=== PATIENT | female | born 1960 | race Caucasian/White ===

== ENCOUNTER 2016-08-02 21:46 | Emergency (ER) | payer MEDICAID, OTHER ==
[~2016-08-02] VITALS: Ht 160 cm; Wt 88.0 kg
[~2016-08-02 21:46] MED LIST: MEDS FOR HTN
[2016-08-02 21:50] VITALS: Ht 160 cm; Wt 88.0 kg
[2016-08-02] MEDS ORDERED: ASPIRIN 81 MG TAB PO STA (23:31)
--- NOTE | 2016-08-02 23:35 | ERD ---
ER Documentation Chief Complaint Date/Time DATE: 08/02/16 TIME: 23:33 Chief Complaint CP for 3 days with GAYLE, weakness and dizziness HPI Patient is a 55-year-old female who presents with gradual onset, intermittent, moderate, dull, pressure-like chest pain for 3 days. She states that she feels an electrical pain that radiates to her right shoulder. She feels short of breath. She denies cough, fever, vomiting. She reports nausea. She states that the pain is worsened by eating. She states that it was constant all day for the last 2 days, and has been intermittent today lasting around an hour at a time. ROS All systems reviewed and are negative except as per history of present illness. Medications Home Meds Active Scripts Famotidine* (Pepcid*) 20 Mg Tablet, 20 MG PO DAILY, #30 TAB Prov:NIC NUR MD 08/03/16 Reported Medications Omega3/Dha/Epa/Fish Oil/Vit D3 ([place]-3 + Vitamin D3 Softgel) 1 Each Capsule, 1 EACH PO, CAP 08/03/16 Triamterene/Hctz* (Maxzide (37.5-25)*) 1 Each Tablet, 1 EACH PO DAILY, #30 TAB 08/03/16 Benazepril Hcl* (Benazepril Hcl*) 10 Mg Tablet, 10 MG PO DAILY for HTN, #30 TAB 08/03/16 Ibuprofen* (Ibuprofen*) 200 Mg Capsule, 200 MG PO Q6, CAP 08/03/16 Discontinued Reported Medications [Meds For Htn] No Conflict Check 06/05/11 Allergies Allergies: Coded Allergies: No Known Allergy (Unverified , 08/03/16) PMhx/Soc Past medical history: Hypertension Past surgical history: Cholecystectomy, hysterectomy Social history: Denies tobacco, alcohol or illicit drugs. History of Surgery: Yes (HYSTERECTOMY,cholecystectomy) Anesthesia Reaction: No Hx Neurological Disorder: No Hx Respiratory Disorders: No Hx Cardiac Disorders: Yes (HTN,high cholesterol) Hx Psychiatric Problems: No Hx Miscellaneous Medical Probl: No Hx Alcohol Use: No Hx Substance Use: No Hx Tobacco Use: No Smoking Status: Never smoker FmHx Family History: No coronary disease, No diabetes Physical Exam Vitals Vital Signs Date Time Temp Pulse Resp B/P Pulse Ox O2 Delivery O2 Flow Rate FiO2 08/03/16 02:00 62 12 133/89 99 Room Air 6/17/17 01:53 97.6 66 13 141/88 99 Room Air 08/03/16 00:10 97.7 76 19 159/80 99 Room Air 08/02/16 21:50 98.7 79 20 177/109 99 Physical Exam Const: Alert, no acute distress Head: Atraumatic Eyes: Normal Conjunctiva, no pallor, no icterus ENT: Normal External Ears, Nose and Mouth. Mucous membranes moist Neck: Full range of motion..~ No meningismus. No JVD. Resp: Clear to auscultation bilaterally, no wheezes, no rales Cardio: Regular rate and rhythm, no murmurs Abd: Soft, non tender, non distended. Normal bowel sounds Skin: No petechiae or rashes Back: No midline or flank tenderness Ext: No cyanosis, or edema Neur: Awake and alert, cranial nerves II through XII intact bilaterally, strength and sensation full in 4 extremities Psych: Normal Mood and Affect Result Diagram: 08/03/16 0010 08/03/16 0010 Results 24 hrs Laboratory Tests Test 08/03/16 00:10 White Blood Count 6.410^3/ul Red Blood Count 4.7610^6/ul Hemoglobin 13.7g/dl Hematocrit 42.1% Mean Corpuscular Volume 88.4fl Mean Corpuscular Hemoglobin 28.8pg Mean Corpuscular Hemoglobin Concent 32.5g/dl Red Cell Distribution Width 14.2% Platelet Count 49626^3/UL Mean Platelet Volume 10.0fl Neutrophils % 50.8% Lymphocytes % 36.0% Monocytes % 8.5% Eosinophils % 3.7% Basophils % 0.5% Nucleated Red Blood Cells % 0.0/100WBC Neutrophils # 3.310^3/ul Lymphocytes # 2.310^3/ul Monocytes # 0.610^3/ul Eosinophils # 0.210^3/ul Basophils # 0.010^3/ul Nucleated Red Blood Cells # 0.010^3/ul Prothrombin Time 12.8Sec Prothrombin Time Ratio 1.0 INR International Normalized Ratio 0.96 Activated Partial Thromboplast Time 32.0Sec Sodium Level 141mmol/L Potassium Level 3.6mmol/L Chloride Level 103mmol/L Carbon Dioxide Level 25mmol/L Anion Gap 17 Blood Urea Nitrogen 23mg/dl Creatinine 0.81mg/dl Glucose Level 90mg/dl Calcium Level 9.6mg/dl Total Bilirubin 0.1mg/dl Direct Bilirubin 0.00mg/dl Indirect Bilirubin 0.1mg/dl Aspartate Amino Transf (AST/SGOT) 21IU/L Alanine Aminotransferase (ALT/SGPT) 37IU/L Alkaline Phosphatase 123IU/L Troponin I < 0.012ng/ml B-Type Natriuretic Peptide 20PG/ML Total Protein 8.1g/dl Albumin 4.8g/dl Globulin 3.30g/dl Albumin/Globulin Ratio 1.45 Current Medications Medications (Trade) Dose Ordered Sig/Caprice Route PRN Reason Start Time Stop Time Status Last Admin Dose Admin Aspirin (Aspirin) 162 mg ONCE STAT PO 08/02/16 23:31 08/02/16 23:33 DC 08/03/16 00:22 Procedures/MDM EKG read by me: Time 0003, rate 65 Rhythm: Normal sinus [place]: Normal Intervals: Normal ST-T waves: Shallow T-wave inversion in aVL only Ectopy: No Q-waves: No Impression: No evidence of ischemia or arrhythmia MDM: Patient is a 55-year-old female who presents with 3 days of chest pain. She states that it is intermittent, but has been constant for 2 full days. It is atypical, and is related to eating, which suggests a gastrointestinal etiology. The patient has a non-concerning EKG, and normal chest x-ray and troponin. Given the duration of symptoms and negative troponin, I believe that the patient can be safely discharged home. Furthermore her clinical history is not suggestive of ACS. There are no features of the pain that are concerning for pulmonary embolism or aortic dissection. I will give the patient a prescription for Pepcid given my high suspicion for GI etiology, and have advised the patient on strict return precautions and need for close PMD follow- up. Departure Diagnosis: Primary Impression: Chest pain Chest pain type: other chest pain Qualified Code: R07.89 - Other chest pain Condition: Stable NIC NUR MD Aug 02, 2016 23:35
[2016-08-03] MEDS ORDERED: IBUP200C PO (00:55)
[2016-08-03] MEDS ORDERED: MAXZ25 PO (00:55)
[2016-08-03] MEDS ORDERED: OMEG-119 PO (00:55)
[2016-08-03] MEDS ORDERED: BENA10TA48 PO (00:55)
--- NOTE | 2016-08-03 00:57 | RADRPT ---
PROCEDURE: XR Chest. CLINICAL INDICATION: Chest pain. TECHNIQUE: Single frontal chest x-ray. COMPARISON: None. FINDINGS: The cardiomediastinal silhouette is unremarkable. There is no congestive heart failure.. No focal i nfiltrate is seen. There is no pleural effusion. There is no pneumothorax. The osseous structures are unremarkable. IMPRESSION: 1. No active disease. RPTAT: HMVK .Lucas May MD, MD Date Time Electronically viewed and signed by .Lucas May MD, MD on 08/03/2016 00:56 .K/
[2016-08-03 01:38] LABS: ADD SCAN DIFF NO
[2016-08-03 01:49] LABS: BASOPHILS % 0.5 % (0.0-2.0); EOSINOPHILS # 0.2 10^3/ul (0.0-0.5); EOSINOPHILS % 3.7 % (0.0-7.0); HEMATOCRIT 42.1 % (37.0-47.0); HEMOGLOBIN 13.7 g/dl (12.0-16.0); LYMPHOCYTES # 2.3 10^3/ul (0.8-2.9); MEAN CORPUSCULAR HEMOGLOBIN 28.8 pg (29.0-33.0); MEAN CORPUSCULAR HGB CONC 32.5 g/dl (32.0-37.0); MEAN CORPUSCULAR VOLUME 88.4 fl (82.0-101.0); MONOCYTE # 0.6 10^3/ul (0.3-0.9); MONOCYTES % 8.5 % (0.0-11.0); NEUTROPHIL # 3.3 10^3/ul (1.6-7.5); NEUTROPHILS % 50.8 % (39.0-77.0); PLATELET COUNT 324 10^3/UL (140-415); RED BLOOD COUNT 4.76 10^6/ul (4.20-5.40); RED CELL DISTRIBUTION WIDTH 14.2 % (11.5-14.5); WHITE BLOOD COUNT 6.4 10^3/ul (4.8-10.8)
[2016-08-03 01:53] VITALS: TEMP 97.6
[2016-08-03 02:00] VITALS: BP 133/89; PULSE 62; RESP 12
[2016-08-03 02:01] LABS: INR 0.96; PROTIME 12.8 Sec (12.2-14.2)
[2016-08-03 02:04] LABS: ALANINE AMINOTRANSFERASE 37 IU/L (13-69); ALBUMIN 4.8 g/dl (3.3-4.9); ALBUMIN/GLOBULIN RATIO 1.45; ALKALINE PHOSPHATASE 123 IU/L (42-121); ANION GAP 17 (8-16); ASPARTATE AMINO TRANSFERASE 21 IU/L (15-46); BILIRUBIN,INDIRECT 0.1 mg/dl (0-1.1); BILIRUBIN,TOTAL 0.1 mg/dl (0.2-1.3); BLOOD UREA NITROGEN 23 mg/dl (7-20); CALCIUM 9.6 mg/dl (8.4-10.2); CARBON DIOXIDE 25 mmol/L (21-31); CHLORIDE 103 mmol/L (97-110); CREATININE 0.81 mg/dl (0.44-1.00); GLUCOSE 90 mg/dl (70-220); POTASSIUM 3.6 mmol/L (3.5-5.1); SODIUM 141 mmol/L (135-144); TOTAL PROTEIN 8.1 g/dl (6.1-8.1)
[2016-08-03 02:16] LABS: B-TYPE NATRIURETIC PEPTIDE 20 PG/ML (0-125)
[2016-08-03 02:23] LABS: TROPONIN-I < 0.012 ng/ml (0.00-0.12)
[2016-08-03] MEDS ORDERED: FAMO-18 PO (02:36)
== END 2016-08-03 02:56 | disposition home or self-care (01) ==
LOC: E/R 21:46
DX: R07.89 Other chest pain (principal); R40.2142 Coma scale, eyes open, spontaneous, at arrival to emergency department; R40.2252 Coma scale, best verbal response, oriented, at arrival to emergency department; R40.2362 Coma scale, best motor response, obeys commands, at arrival to emergency department; I10 Essential (primary) hypertension; R06.02 Shortness of breath
CPT/HCPCS: 71010; 80053; 83880; 84484; 85025; 85610; 85730; Z7610; 36415; 93005

== ENCOUNTER 2018-04-18 05:19 | Emergency (ER) | payer OTHER ==
[~2018-04-18] VITALS: Ht 157.5 cm; Wt 90.9 kg
[~2018-04-18 05:19] MED LIST changes: +BENA10TA4 PO; +FAMO-96 PO; +IBUP-1982 PO; +MAXZ25 PO; -MEDS FOR HTN; +OMEG-119 PO
[2018-04-18 05:27] VITALS: BP 162/95; PULSE 74; RESP 18; Ht 157.5 cm; Wt 90.9 kg
[2018-04-18] MEDS ORDERED: BACI28.34 TOP (08:50)
[2018-04-18] MEDS ORDERED: CEPH-443 PO (08:50)
--- NOTE | 2018-04-18 16:25 | ERD ---
ER Documentation Chief Complaint Chief Complaint crusty lesions on RUQ breast area; prescribed cream not working HPI 57-year-old female patient with past medical history of hypertension presents to ED complaining of a rash on her right upper breast that started about 6 weeks ago. Patient was given a prescription for ketoconazole, mupirocin and has been applying it without any relief. Reports that she does have a referral to see kalsominer but the appointment is not until June. States that she has an appointment to also receive a mammogram on April 24, 2018. Denies any rash pain or itchiness. Denies any breast pain, chest pain, shortness of breath, fever, chills, nausea, vomiting, cough, rhinorrhea, fever. ROS All systems reviewed and are negative except as per history of present illness. Medications Home Meds Active Scripts Bacitracin* (Bacitracin Zinc Oint*) 28.35 Gm Oint, 1 APPLIC TOP TID, #1 TUB APPLY TO Prov:MONICA HUBBARD PA-C 04/18/18 Cephalexin* (Keflex*) 500 Mg Capsule, 500 MG PO QID for 7 Days, CAP Prov:MONICA HUBBARD PA-C 04/18/18 Famotidine* (Pepcid*) 20 Mg Tablet, 20 MG PO DAILY, #30 TAB Prov:NIC NUR MD 08/03/16 Reported Medications Omega3/Dha/Epa/Fish Oil/Vit D3 ([place]-3 + Vitamin D3 Softgel) 1 Each Capsule, 1 EACH PO, CAP 08/03/16 Triamterene/Hctz* (Maxzide (37.5-25)*) 1 Each Tablet, 1 EACH PO DAILY, #30 TAB 08/03/16 Benazepril Hcl* (Benazepril Hcl*) 10 Mg Tablet, 10 MG PO DAILY for HTN, #30 TAB 08/03/16 Ibuprofen* (Ibuprofen*) 200 Mg Capsule, 200 MG PO Q6, CAP 08/03/16 Allergies Allergies: Coded Allergies: No Known Allergy (Unverified , 08/03/16) PMhx/Soc History of Surgery: Yes (HYSTERECTOMY,cholecystectomy) Anesthesia Reaction: No Hx Neurological Disorder: No Hx Respiratory Disorders: No Hx Cardiac Disorders: Yes (HTN,high cholesterol) Hx Psychiatric Problems: No Hx Miscellaneous Medical Probl: No Hx Alcohol Use: No Hx Substance Use: No Hx Tobacco Use: No Smoking Status: Never smoker FmHx Family History: No diabetes, No coronary disease Physical Exam Vitals Vital Signs Date Temp Pulse Resp B/P (MAP) Pulse Ox O2 O2 Flow FiO2 Time Delivery Rate 04/18/18 98.1 74 18 162/95 99 05:27 (117) Physical Exam Const: [id number], well-nourished. In no acute distress. Head: Atraumatic, normocephalic Eyes: Normal Conjunctiva without injection. No purulent discharge. PERRL. EOMI ENT: Normal external ear. Ear canal without erythema. Tympanic membrane pearly galvan without effusion or bulging. Nasal canal clear with normal turbinates. Moist oropharynx without tonsillar exudates. Non-erythematous pharynx. Uvula midline. No drooling. No trismus. Neck: Full range of motion. No meningismus. No cervical lymphadenopathy. Resp: Clear to auscultation bilaterally. No wheezing, rhonchi, rales, or crackles. No accessory muscle use. No retractions. Cardio: Regular rate and rhythm. No murmurs, rubs or gallops Abd: Soft, non tender, non distended. Normal bowel sounds. No palpable masses. No rebound tenderness. No guarding. Skin: No petechiae or purpura. Two erythematous scab-like lesion noted on the r ight upper breast. No edema, fluctuance, induration. No purulent discharge. Back: No midline tenderness. No CVA tenderness. Ext: No cyanosis, or edema. Neur: Awake and alert. Psych: Normal Mood and Affect Procedures/MDM 57-year-old female patient with a past medical history of hypertension presents to ED complaining of right upper quadrant rest rash. Patient is afebrile and nontoxic-appearing. Patient blood pressure is 162/95. Blood Pressure Assessment: Patient's blood pressure was elevated (>120/80) but appears stable without evidence of hypertension emergency or urgency. The patient was counseled about the risks of hypertension and urged to pursue outpatient monitoring and therapy within a week with their primary care physician. Patient had a scab like lesion - will be covered for bacterial etiology. Low suspicion for anaphylaxis, scabies, SJS/TEN, TSS, Lyme's Disease, syphilis, RMSF, shingles, disseminated gonorrhea chlamydia, DIC, TTP, ITP, erythema multiforme, sepsis, cellulitis, necrotizing fasciitis, gangrene, meningococcemia, allergic contact dermatitis, urticaria, eczema, tinea infection, or other emergent conditions. Diagnosis: Rash and nonspecific skin eruption Discharge medications: Bacitracin, Keflex Follow up with primary care physician in 1-2 days. Patient has a referral to see the kalsominer as well as to obtain a mammogram. Instructed patient to return to the ED sooner for any worsening symptoms. Patient's questions were answered. Patient is hemodynamically stable. Patient understood and agreed with discharge plan. Patient discharged stable. Disclaimer: Inadvertent spelling and grammatical errors are likely due to EHR/dictation software use and do not reflect on the overall quality of patient care. Also, please note that the electronic time recorded on this note does not necessarily reflect the actual time of the patient encounter. Departure Diagnosis: Primary Impression: Rash and nonspecific skin eruption Condition: Stable Patient Instructions: Self-Care for Skin Rashes, Impetigo Referrals: [facility] () Usted se potts hecho un examen mdico de control que le indica que no est en lavelle condicin que requiera tratamiento urgente en el Departamento de Emergencia. Un estudio ms profundo y el tratamiento de ponce condicin pueden esperar sin ningn riesgo hasta que usted sea atendida/o en el consultorio de ponce mdico o lavelle clnica. Es responsabilidad suya arreglar lavelle alyx para el seguimiento del emanuel. MANEJO DE CONDICIONES NO URGENTES EN EL FUTURO 1) Si usted tiene un mdico de atencin primaria: Usted debera llamar a ponce mdico de atencin primaria antes de venir al departamento de emergencia. Despus de las horas de consultorio, ponce doctor o ponce asociado/a est disponible por telfono. El mdico o enfermero de shayna en el servicio telefnico puede asesorarle por la medio para atender el problema, o emanuel contrario se puede programar lavelle alyx. 2) Si usted no tiene un mdico de atencin primaria: Llame al mdico o clnica de referencia que aparece abajo claudio las horas de consultorio para hacer lavelle alyx para que le vean. CLINICAS: [facility] [phone] [facility] [phone] [facility] [phone] [place] [id number] [phone] [place] [id number] [phone] [facility] [phone] [address] [facility]. [facility] () Usted se potts hecho un examen mdico de control que le indica que no est en lavelle condicin que requiera tratamiento urgente en el Departamento de Emergencia. Un estudio ms profundo y el tratamiento de ponce condicin pueden esperar sin ningn riesgo hasta que usted sea atendida/o en el consultorio de ponce mdico o lavelle clnica. Es responsabilidad suya arreglar lavelle alyx para el seguimiento del emanuel. MANEJO DE CONDICIONES NO URGENTES EN EL FUTURO 1) Si usted tiene un mdico de atencin primaria: Usted debera llamar a ponce mdico de atencin primaria antes de venir al departamento de emergencia. Despus de las horas de consultorio, ponce doctor o ponce asociado/a est disponible por telfono. El mdico o enfermero de shayna en el servicio telefnico puede asesorarle por la medio para atender el problema, o emanuel contrario se puede programar lavelle alyx. 2) Si usted no tiene un mdico de atencin primaria: Llame al mdico o condado institucions de referencia que aparece abajo claudio las horas de consultorio para hacer lavelle alyx para que le vean. SI USTED NO PUEDE PAGAR PARA ZULEMA UN MEDICO puede ir a: [facility] [address] [place] [address] [facility] [address] [place] [address] [facility] [address] [place] [address] [facility] [address] [place], [place] [id number] Additional Instructions: Mantenga ponce alyx para la mamografa en 04/24/18 y ponce alyx para zulema al dermatlogo Dgale a la secretaria que nosotros le instruimos hacer esta alyx.Avise o llame si ponce condicin se empeora antes de la alyx. Regresa aqui si peor o no mejor. MONICA HUBBARD PA-C Apr 18, 2018 16:25
== END 2018-04-18 09:23 | disposition home or self-care (01) ==
LOC: FTE 05:19
DX: L98.9 Disorder of the skin and subcutaneous tissue, unspecified (principal); I10 Essential (primary) hypertension
CPT/HCPCS: 99283

== ENCOUNTER 2018-07-16 21:29 | Emergency (ER) | payer OTHER ==
[~2018-07-16] VITALS: Ht 160 cm; Wt 89.0 kg
[~2018-07-16 21:29] MED LIST changes: +BACI28.34 TOP; +CEPH-443 PO
[2018-07-16 21:32] VITALS: Ht 160 cm; Wt 89.0 kg
[2018-07-16] MEDS ORDERED: NICARDipine HCL 30 MG CAPSULE PO ONE (22:00)
--- NOTE | 2018-07-16 23:50 | ERD ---
ER Documentation Chief Complaint Chief Complaint INTERMITTENT PALPITATION WORSE WITH EATING HPI Patient is a 57-year-old female with hypertension and high cholesterol presents with palpitations. Her symptoms started at 3 PM. She still feels a symptoms now. She had headache and dizziness with walking. She took her blood pressure medicines today. She denies chest pain. Upon review of old medical records this is the patient's fifth visit to the ER since 2011. Her primary doctor is Dr. Dave. ROS All systems reviewed and are negative except as per history of present illness. Medications Home Meds Active Scripts Bacitracin* (Bacitracin Zinc Oint*) 28.35 Gm Oint, 1 APPLIC TOP TID, #1 TUB APPLY TO Prov:MONICA HUBBARD PA-C 04/18/18 Cephalexin* (Keflex*) 500 Mg Capsule, 500 MG PO QID for 7 Days, CAP Prov:MONICA HUBBARD PA-C 04/18/18 Famotidine* (Pepcid*) 20 Mg Tablet, 20 MG PO DAILY, #30 TAB Prov:NIC NUR MD 08/03/16 Reported Medications Omega3/Dha/Epa/Fish Oil/Vit D3 ([place]-3 + Vitamin D3 Softgel) 1 Each Capsule, 1 EACH PO, CAP 08/03/16 Triamterene/Hctz* (Maxzide (37.5-25)*) 1 Each Tablet, 1 EACH PO DAILY, #30 TAB 08/03/16 Benazepril Hcl* (Benazepril Hcl*) 10 Mg Tablet, 10 MG PO DAILY for HTN, #30 TAB 08/03/16 Ibuprofen* (Ibuprofen*) 200 Mg Capsule, 200 MG PO Q6, CAP 08/03/16 Allergies Allergies: Coded Allergies: No Known Allergy (Unverified , 08/03/16) PMhx/Soc History of Surgery: Yes (HYSTERECTOMY,cholecystectomy) Anesthesia Reaction: No Hx Neurological Disorder: No Hx Respiratory Disorders: No Hx Cardiac Disorders: Yes (HTN,high cholesterol) Hx Psychiatric Problems: No Hx Miscellaneous Medical Probl: No Hx Alcohol Use: No Hx Substance Use: No Hx Tobacco Use: No Smoking Status: Never smoker FmHx Family History: No coronary disease Physical Exam Vitals Vital Signs Date Temp Pulse Resp B/P (MAP) Pulse Ox O2 O2 Flow FiO2 Time Delivery Rate 07/16/18 72 18 181/105 100 Room Air 22:56 (130) 07/16/18 75 18 201/109 100 Room Air 22:06 (139) 07/16/18 97.9 87 20 196/110 95 21:32 (138) Physical Exam Const: No acute distress Head: Atraumatic Eyes: Normal Conjunctiva ENT: Normal External Ears, Nose and Mouth. Neck: Full range of motion. No meningismus. Resp: Clear to auscultation bilaterally Cardio: Regular rate and rhythm, no murmurs Abd: Soft, non tender, non distended. Normal bowel sounds Skin: No petechiae or rashes Back: No midline or flank tenderness Ext: No cyanosis, or edema Neur: Awake and alert Psych: Normal Mood and Affect Result Diagram: 07/16/18215207/16/182152 Results 24 hrs Laboratory Tests Test 07/16/18 21:53 White Blood Count 6.0 10^3/ul Red Blood Count 5.09 10^6/ul Hemoglobin 14.6 g/dl Hematocrit 44.5 % Mean Corpuscular Volume 87.4 fl Mean Corpuscular Hemoglobin 28.7 pg Mean Corpuscular Hemoglobin Concent 32.8 g/dl Red Cell Distribution Width 13.8 % Platelet Count 306 10^3/UL Mean Platelet Volume 9.9 fl Immature Granulocytes % 0.500 % Neutrophils % 50.7 % Lymphocytes % 36.8 % Monocytes % 7.8 % Eosinophils % 3.7 % Basophils % 0.5 % Nucleated Red Blood Cells % 0.0 /100WBC Immature Granulocytes # 0.030 10^3/ul Neutrophils # 3.1 10^3/ul Lymphocytes # 2.2 10^3/ul Monocytes # 0.5 10^3/ul Eosinophils # 0.2 10^3/ul Basophils # 0.0 10^3/ul Nucleated Red Blood Cells # 0.0 10^3/ul Sodium Level 138 mmol/L Potassium Level 3.5 mmol/L Chloride Level 99 mmol/L Carbon Dioxide Level 28 mmol/L Anion Gap 11 Blood Urea Nitrogen 18 mg/dl Creatinine 0.78 mg/dl Est Glomerular Filtrat Rate mL/min > 60 mL/min Glucose Level 136 mg/dl Calcium Level 9.7 mg/dl Magnesium Level 2.3 mg/dl Troponin I < 0.012 ng/ml Thyroid Stimulating Hormone (TSH) 2.990 MIU/L Free Thyroxine 0.98 ng/dl Current Medications Medications Dose Sig/Caprice Start Time Status Last (Trade) Ordered Route PRN Stop Time Admin Dose Reason Admin Nicardipine 30 mg ONCE ONCE 07/16/18 DC 07/16/18 HCl PO 22:00 22:03 (Cardene) 07/16/18 22:01 Procedures/MDM EKG read by me: Rate/Rhythm: Regular rate and rhythm at a rate of 74 Intervals: Normal Impression: No evidence of ischemia or arrhythmia Chest x-ray negative per radiology. Patient is a 57-year-old female with hypertension and high cholesterol presents with palpitations. The patient has a normal EKG. Laboratory studies are basically normal including TSH and free T4. The patient had elevated blood pressure and was given Cardene by mouth. The patient will be discharged but will need to follow-up closely with the primary doctor within 24 to 48 hours. The patient can return sooner for any worsening symptoms. Patient understands the plan and is okay for discharge at this time. Departure Diagnosis: Primary Impression: HTN (hypertension) Hypertension type: essential hypertension Qualified Codes: I10 - Essential (primary) hypertension Additional Impression: Palpitations Condition: Fair Patient Instructions: High Blood Pressure (Hypertension), Palpitations Additional Instructions: Llame al doctor MAANA y magdy lavelle RAJAN PARA DENTRO DE 1-2 LIMA.Dgale a la secretaria que nosotros le instruimos hacer esta rajan.Avise o llame si ponce condicin se empeora antes de la rajan. Regresa aqui si peor o no mejor. TATA JIMENEZ MD July 16, 2018 23:50
[2018-07-17 00:02] VITALS: BP 159/96; PULSE 72; RESP 15
[2018-07-17] MEDS ORDERED: BENA20TA4 PO (03:22)
== END 2018-07-17 00:03 | disposition home or self-care (01) ==
LOC: E/R 21:29
DX: I10 Essential (primary) hypertension (principal); R40.2142 Coma scale, eyes open, spontaneous, at arrival to emergency department; R40.2362 Coma scale, best motor response, obeys commands, at arrival to emergency department; R40.2252 Coma scale, best verbal response, oriented, at arrival to emergency department
CPT/HCPCS: 71045; 80048; 83735; 84439; 84443; 84484; 85025; 93005; Z7610; 36415